=== PATIENT | male | born 1995 | race Caucasian/White ===

== ENCOUNTER 2021-08-01 23:04 | Emergency (ER) | payer BC ==
[~2021-08-01] VITALS: Ht 177.8 cm; Wt 158.8 kg
--- NOTE | 2021-08-02 00:18 | NUR ---
Patient discharged to home in stable condition. Written and verbal after care instructions given. Patient verbalizes understanding of instruction.
[2021-08-02 00:19] VITALS: BP 144/100
== END 2021-08-02 00:19 | disposition home or self-care (01) ==
LOC: ER 23:07
DX: S93.492A Sprain of other ligament of left ankle, initial encounter (principal); Z60.2 Problems related to living alone; W22.8XXA Striking against or struck by other objects, initial encounter; Y93.89 Activity, other specified; Y92.89 Other specified places as the place of occurrence of the external cause; Y99.8 Other external cause status
CPT/HCPCS: 73610-TC

== ENCOUNTER 2022-05-20 07:35 | Outpatient (CLI) | payer BC | END 2022-05-20 23:59 | disposition home or self-care (01) | LOC: LAB 07:35 | PROVIDERS: ATTEND Internal Medicine Cardiovascular Disease | DX: Z77.21 Contact with and (suspected) exposure to potentially hazardous body fluids (principal) | CPT/HCPCS: 36415; 86706; 86803; 87806 ==

== ENCOUNTER 2023-11-18 22:56 | Emergency (ER) | payer BC, OTHER ==
[~2023-11-18] VITALS: Ht 177.8 cm; Wt 181.4 kg
[2023-11-18] MEDS ORDERED: IBUPROFEN 600 MG TABLET PO ONE (23:00)
[2023-11-18] MEDS ORDERED: ACETAMINOPHEN ES 500 MG TABLET PO ONE (23:00)
[2023-11-18] MEDS ORDERED: OXYMETAZOLINE HCL NASAL SPRAY 30 ML BOTTLE NS ONE ×2 (23:00→23:04)
[2023-11-18] MEDS ORDERED: IBUPROFEN 600 MG TABLET ONE (23:05)
[2023-11-18] MEDS ORDERED: ACETAMINOPHEN ES 500 MG TABLET ONE (23:05)
[2023-11-18 23:25] VITALS: BP 126/74; TEMP 98; O2SAT 98
== END 2023-11-18 23:25 | disposition home or self-care (01) ==
LOC: EDUNIT# 22:56 → ER 22:59
DX: S09.8XXA Other specified injuries of head, initial encounter (principal); R04.0 Epistaxis; Z60.2 Problems related to living alone; W50.0XXA Accidental hit or strike by another person, initial encounter; Y93.89 Activity, other specified; Y92.89 Other specified places as the place of occurrence of the external cause; Y99.8 Other external cause status